=== PATIENT | female | born 1955 | race Caucasian/White ===

== ENCOUNTER 2016-07-03 05:31 | Emergency (ER) | payer OTHER ==
[~2016-07-03 05:31] MED LIST: IBUPROFEN200 MG PO; NO HOME MEDS; NORCO 5-325 TA1 EACH PO; PERCOCET 5-3251 EACH PO; SKELAXIN800 M1 PO
[2016-07-03] MEDS ORDERED: NORCO 5-325 TA1 EACH PO (06:27)
== END 2016-07-03 06:32 ==
LOC: EDMED 05:31
DX: S39.012A Strain of muscle, fascia and tendon of lower back, initial encounter (principal); R03.0 Elevated blood-pressure reading, without diagnosis of hypertension; X58.XXXA Exposure to other specified factors, initial encounter
CPT/HCPCS: J1885; J2060